=== PATIENT | male | born 1985 | race Caucasian/White ===

== ENCOUNTER 2016-05-05 02:19 | Emergency (ER) | payer OTHER ==
[~2016-05-05 02:19] MED LIST: B-COINJ PO; CIPR-250 PO; LYSI1000 PO; MELO15TA4 PO; NORC5TAB PO; TOPI1TAB31 PO; ZOLM2.5T PO; [UNRECOGNIZED DRUG - OTHER] PO
[2016-05-05] MEDS ORDERED: ISOVUE-370 76% 100ML VIAL (Q9967) As Ordered ONE (04:06)
[2016-05-05 04:25] LABS: BASO % 0.5 % (0.0-1.0); EOS # 0.1 K/mm3 (0.0-0.50); EOS % 1.1 % (0.0-3.0); LARGE UNSTAINED CELL # 0.1 K/mm3 (0.0-0.4); LARGE UNSTAINED CELL % 1.7 % (0.0-4.0); LYMPH # 1.6 K/mm3 (1.5-4.5); LYMPH % 27.6 % (24.0-44.0); MEAN CORPUSCULAR HEMOGLOBIN 30.8 pg (27.0-33.0); MEAN CORPUSCULAR HGB CONC 34.7 g/dl (32.0-36.5); MEAN CORPUSCULAR VOLUME 88.8 fl (80.0-96.0); MONO # 0.5 K/mm3 (0.0-0.8); MONO % 9.1 % (0.0-5.0); NEUTROPHILS # 3.4 K/mm3 (1.8-7.7); NEUTROPHILS % 60.1 % (36.0-66.0); PLATELET COUNT, AUTOMATED 265 k/mm3 (150-450); RED CELL DISTRIBUTION WIDTH 11.9 % (11.5-14.5); WHITE BLOOD COUNT 5.7 K/mm3 (4.0-10.0)
[2016-05-05] MEDS ORDERED: PERCOCET 5MG/325MG TAB As Ordered ONE (05:20)
[2016-05-05] MEDS ORDERED: ONDANSETRON 4MG/2ML VIAL (J2405) As Ordered ONE (05:20)
--- NOTE | 2016-05-05 05:20 | REPUSA ---
CLINICAL HISTORY: Neck pain. TECHNIQUE: Multiple axial images were obtained through the cervical spine. Images were also reconstru cted in coronal and sagittal planes. The study was performed without IV contrast. COMMENTS: There is no fracture or spondylolisthesis visualized. The paraspinal soft tissues are unremarkable. T here are no lytic or blastic lesions. Straightening of cervical lordosis is seen, suggesting muscular spasm. There is evidence of minimal m ultilevel disk disease, demonstrated by minimal osteophytosis and endplate sclerosis. No significant disk herniation is noted at any level. Canal and foramina remain patent. IMPRESSION: 1. No fracture or spondylolisthesis. 2. Straightening of cervical lordosis is seen, suggesting muscular spasm. 3. Minimal multilevel spondylosis. Thank you for your kind referral of this patient.
--- NOTE | 2016-05-05 06:01 | EDDOCDS ---
Nurse's Notes [facility] Name: Hector Bynum Age: 31 yrs Sex: Male : 1985 Arrival Date: 05/05/2016 Time: 02:19 Bed 17 Private MD: Diagnosis: Headache Presentation: 05/05 02:26 Presenting complaint: Patient states: noted spotting from surgical wound yesterday, cjh feeling light headed and nauseous all day, woke up this morning about 0140 and had some gross stuff, pinkish, discharge present on dressing and pillowcase. Adult Sepsis Screening: The patient does not have new or worsening altered mentation. Patient's respiratory rate is less than 22. Systolic blood pressure is greater than 100. Patient has a qSOFA score of 0- Negative Sepsis Screen. Suicide/Homicide risk assessment- the patient denies having any suicidal and/or homicidal ideations and does not present with any other emotional, behavioral or mental health complaints. 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 Transition of care: patient was not received from another setting of care. 02:26 Acuity: MARIA LUZ Level 3 [facility] 02:26 Method Of Arrival: Walkin/Carried/Asstd [facility] Triage Assessment: 02:33 General: Appears in no apparent distress, comfortable, Behavior is appropriate for age, [facility] cooperative. Pain: Location: head Pain currently is 4 out of 10 on a pain scale. HIV screening NA for this visit Offered previously. Neurological: Level of Consciousness is awake, alert, Oriented to person, place, time. Respiratory: Airway is patent Respiratory effort is even, unlabored, Respiratory pattern is regular, symmetrical. Derm: Skin is pink, warm & dry. small amount red drainage present on surgical wound dressing. Historical: - Allergies: no known allergies; - Home Meds: 1. Bactrim DS 800-160 mg Oral tab 2 tabs 2 times per day (Last dose: 05/04/2016 23:00) 2. meloxicam 15 mg oral tab 1 tab once daily 3. topiramate 100 mg oral tab 1 tab 2 times per day 4. zoltriptan 2.5 mg as needed 5. [place] 5-325 mg Oral tab 1 tab every 6 hours last taken on 19 of april, ran out - PMHx: Chiari Malformation; Migraine Headaches; occipital neuralgia; - PSHx: Chiari Malformation; Left Knee; Lasik Surgery; Hernia repair; - Social history: Smoking status: Patient states was never smoker of tobacco. No barriers to communication noted. - Family history: Not pertinent. - : The pt / caregiver states he / she is not on anticoagulants. Home medication list is obtained from the patient. - Exposure Risk Screening:: None identified. Screenin:04 Screening information is obtained from the patient. Fall risk: No risks identified. jp6 Assistance ADL's: requires no assistance with activities of daily living. Abuse/DV Screen: The patient / caregiver reports he/she is: not in a situation that causes fear, pain or injury. Nutritional screening: No deficits noted. Advance Directives: Currently, there is no health care proxy. There is no active DNR order. There is no living will. home support is adequate. Assessment: 03:04 General: Appears distressed, uncomfortable, Behavior is anxious, appropriate for age, jp6 cooperative. Pain: Denies pain. Neurological: No deficits noted. Level of Consciousness is awake, alert, Oriented to person, place, time. EENT: No deficits noted. Cardiovascular: No deficits noted. Respiratory: No deficits noted. GI: No deficits noted. : No deficits noted. Derm: Skin incision site dehisence at proximal end Skin is pink, moderate amt thick bloody drng noted. Musculoskeletal: No deficits noted. 05:34 Reassessment: Patient appears in no apparent distress at this time. Patient denies pain jp6 at this time. Pain: Location: scalp Pain currently is 5 out of 10 on a pain scale. Respiratory: No deficits noted. Derm: Skin is pink, warm & dry. Vital Signs: 02:24 BP 154 / 88; Pulse 75; Resp 18; Temp 98.8; Pulse Ox 98% ; Weight 104.33 kg; Height 5 ajs ft. 9 in. (175.26 cm); Pain 4/10; 05:19 BP 121 / 66; Pulse 61; Resp 16; Temp 98.9; Pulse Ox 99% ; Pain 6/10; [facility] 02:24 Body Mass Index 33.96 (104.33 kg, 175.26 cm) [facility] Vitals: 02:33 Log In Time: May 05, 2016 at 02:17. [facility] ED Course: 02:21 Patient visited by Jesenia Davis. gjb 02:21 Patient moved to Waiting gjb 02:24 Patient moved to Triage 1 cjh 02:26 Patient visited by Melissa Montilla. ajs 02:31 Triage Initiated cjh 02:36 Patient moved to 17 cjh 02:44 Cyndi Alvarez MD is Attending Physician. fg 02:44 Patient visited by Cyndi Alvarez MD. fg 02:49 Gaye Padilla,LISA is Primary Nurse. jp6 03:04 The patient / caregiver is instructed regarding the plan of care and ED course. jp6 03:46 Patient visited by Gaye Padilla,LISA. jp6 04:18 [facility] [place] [facility] Payment Agreement was scanned into [employer] and attached to record. hs2 04:35 Inserted saline lock: 20 gauge in right antecubital area and blood collected. jp6 04:47 Patient visited by Gaye Padilla,LISA. jp6 05:19 Wally Winslow is Referral Physician. fg 05:34 No procedures done that require assistance. jp6 06:00 Discontinued lock intact, bleeding controlled, pressure dressing applied, No jp6 redness/swelling at site. Administered Medications: 05:31 Drug: oxyCODONE-acetaminophen 1 tabs [oxycodone-acetaminophen 5 mg-325 mg tablet (1 [facility] tabs)] Route: PO; 05:31 Drug: Ondansetron 4 mg Route: IVP; Site: right antecubital; [facility] Order Results: Lab Order: CBC with Diff; SPEC'M 05/05/16 04:17 Test: WHITE BLOOD COUNT; Value: 5.7; Range: 4.0-10.0; Units: K/mm3; Status: F Test: RED BLOOD COUNT; Value: 4.65; Range: 4.30-6.10; Units: M/mm3; Status: F Test: HEMOGLOBIN; Value: 14.3; Range: 14.0-18.0; Units: g/dl; Status: F Test: HEMATOCRIT; Value: 41.4; Range: 42.0-52.0; Abnormal: Below low normal; Units: %; Status: F Test: MEAN CORPUSCULAR VOLUME; Value: 88.8; Range: 80.0-96.0; Units: fl; Status: F Test: MEAN CORPUSCULAR HEMOGLOBIN; Value: 30.8; Range: 27.0-33.0; Units: pg; Status: F Test: MEAN CORPUSCULAR HGB CONC; Value: 34.7; Range: 32.0-36.5; Units: g/dl; Status: F Test: RED CELL DISTRIBUTION WIDTH; Value: 11.9; Range: 11.5-14.5; Units: %; Status: F Test: PLATELET COUNT, AUTOMATED; Value: 265; Range: 150-450; Units: k/mm3; Status: F Test: NEUTROPHILS %; Value: 60.1; Range: 36.0-66.0; Units: %; Status: F Test: LYMPH %; Value: 27.6; Range: 24.0-44.0; Units: %; Status: F Test: MONO %; Value: 9.1; Range: 0.0-5.0; Abnormal: Above high normal; Units: %; Status: F Test: EOS %; Value: 1.1; Range: 0.0-3.0; Units: %; Status: F Test: BASO %; Value: 0.5; Range: 0.0-1.0; Units: %; Status: F Test: LARGE UNSTAINED CELL %; Value: 1.7; Range: 0.0-4.0; Units: %; Status: F Test: NEUTROPHILS #; Value: 3.4; Range: 1.8-7.7; Units: K/mm3; Status: F Test: LYMPH #; Value: 1.6; Range: 1.5-4.5; Units: K/mm3; Status: F Test: MONO #; Value: 0.5; Range: 0.0-0.8; Units: K/mm3; Status: F Test: EOS #; Value: 0.1; Range: 0.0-0.50; Units: K/mm3; Status: F Test: BASO #; Value: 0.0; Range: 0.0-0.2; Units: K/mm3; Status: F Test: LARGE UNSTAINED CELL #; Value: 0.1; Range: 0.0-0.4; Units: K/mm3; Status: F Outcome: 05:19 Discharge ordered by Provider. fg 05:34 Discharge Assessment: Patient awake, alert and oriented x 3. No cognitive and/or jp6 functional deficits noted. Patient verbalized understanding of disposition instructions. patient administered narcotics - yes. Pt provided with safe discharge. The following High Risk Discharge criteria are identified: None. Discharged to home ambulatory, with significant other. Condition: stable. CT Study completed. Property :Personal belongings accompany Pt. 06:00 Patient left the ED. jp6 Signatures: Melissa Montilla Jane,RN RN [facility] Cyndi Alvarez MD MD fg Beck, Gabriela gjb Stanton, Hillary, Reg Reg hs2 Gaye Padilla,RN RN jp6 Corrections: (The following items were deleted from the chart) 02:26 02:24 BP 154 / 88; Pulse 75bpm; Resp 18bpm; Pulse Ox 98%; Temp 98.8F; Height 5 ft. 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 [facility] MTDD
--- NOTE | 2016-05-05 06:01 | EDDOCDS ---
Physician Documentation [facility] Name: Hector Bynum Age: 31 yrs Sex: Male : 1985 Arrival Date: 05/05/2016 Time: 02:19 Bed 17 Private MD: Disposition: 05/05/16 05:19 Discharged to Home/Self Care. Impression: Headache. - Condition is Stable. - Medication Reconciliation, Local Pharmacy Hours form. - Follow up: Wally Winslow; When: Today; Reason: Recheck today's complaints. - Problem is new. - Symptoms have improved. Historical: - Allergies: no known allergies; - Home Meds: 1. Bactrim DS 800-160 mg Oral tab 2 tabs 2 times per day (Last dose: 05/04/2016 23:00) 2. meloxicam 15 mg oral tab 1 tab once daily 3. topiramate 100 mg oral tab 1 tab 2 times per day 4. zoltriptan 2.5 mg as needed 5. [place] 5-325 mg Oral tab 1 tab every 6 hours last taken on 19 of april, ran out - PMHx: Chiari Malformation; Migraine Headaches; occipital neuralgia; - PSHx: Chiari Malformation; Left Knee; Lasik Surgery; Hernia repair; - Social history: Smoking status: Patient states was never smoker of tobacco. No barriers to communication noted. - Family history: Not pertinent. - : The pt / caregiver states he / she is not on anticoagulants. Home medication list is obtained from the patient. - Exposure Risk Screening:: None identified. Vital Signs: 05/05 02:24 BP 154 / 88; Pulse 75; Resp 18; Temp 98.8; Pulse Ox 98% ; Weight 104.33 kg / 230.01 ajs lbs; Height 5 ft. 9 in. (175.26 cm); Pain 4/10; 05:19 BP 121 / 66; Pulse 61; Resp 16; Temp 98.9; Pulse Ox 99% ; Pain 6/10; cjh 02:24 Body Mass Index 33.96 (104.33 kg, 175.26 cm) ajs MDM: 03:56 IV Saline Lock ordered. fg 03:58 CBC with Diff Ordered. EDMS 04:17 Financial registration complete. hs2 04:18 [facility] [place] Payment Agreement was scanned into [employer] and attached to record. hs2 05:19 oxyCODONE-acetaminophen 5 mg-325 mg 1 tabs PO once ordered. fg 05:19 Ondansetron 4 mg IVP once ordered. fg Administered Medications: 05:31 Drug: oxyCODONE-acetaminophen 1 tabs [oxycodone-acetaminophen 5 mg-325 mg tablet (1 [facility] tabs)] Route: PO; 05:31 Drug: Ondansetron 4 mg Route: IVP; Site: right antecubital; [facility] Signatures: Dispatcher [employer] EDMS Erica MichaelRN RN [facility] Cyndi Alvarez MD MD Arlen Morrison, Reg Reg hs2 Gaye Padilla,RN RN jp6 The chart was reviewed and I authenticate all verbal orders and agree with the evaluation and treatment provided.Corrections: (The following items were deleted from the chart) 04:04 03:58 BASIC METABOLIC PROFILE+LAB ordered. EDMS EDMS 04:05 03:58 CT Spine,cervical w/o contrast+CT ordered. EDMS EDMS Attachments: 04:18 [facility] [place] Payment Agreement hs2 MTDD
--- NOTE | 2016-05-07 07:01 | EDDOCDS ---
Physician Documentation [facility] Name: Hector Bynum Age: 31 yrs Sex: Male : 1985 Arrival Date: 05/05/2016 Time: 02:19 Bed 17 Private MD: Disposition: 05/05/16 05:19 Discharged to Home/Self Care. Impression: Headache. - Condition is Stable. - Medication Reconciliation, Local Pharmacy Hours form. - Follow up: Wally Winslow; When: Today; Reason: Recheck today's complaints. - Problem is new. - Symptoms have improved. Historical: - Allergies: no known allergies; - Home Meds: 1. Bactrim DS 800-160 mg Oral tab 2 tabs 2 times per day (Last dose: 05/04/2016 23:00) 2. meloxicam 15 mg oral tab 1 tab once daily 3. topiramate 100 mg oral tab 1 tab 2 times per day 4. zoltriptan 2.5 mg as needed 5. [place] 5-325 mg Oral tab 1 tab every 6 hours last taken on 19 of april, ran out - PMHx: Chiari Malformation; Migraine Headaches; occipital neuralgia; - PSHx: Chiari Malformation; Left Knee; Lasik Surgery; Hernia repair; - Social history: Smoking status: Patient states was never smoker of tobacco. No barriers to communication noted. - Family history: Not pertinent. - : The pt / caregiver states he / she is not on anticoagulants. Home medication list is obtained from the patient. - Exposure Risk Screening:: None identified. Vital Signs: 05/05 02:24 BP 154 / 88; Pulse 75; Resp 18; Temp 98.8; Pulse Ox 98% ; Weight 104.33 kg / 230.01 ajs lbs; Height 5 ft. 9 in. (175.26 cm); Pain 4/10; 05:19 BP 121 / 66; Pulse 61; Resp 16; Temp 98.9; Pulse Ox 99% ; Pain 6/10; cjh 02:24 Body Mass Index 33.96 (104.33 kg, 175.26 cm) ajs MDM: 03:56 IV Saline Lock ordered. fg 03:58 CBC with Diff Ordered. EDMS 04:17 Financial registration complete. hs2 04:18 [facility] Payment Agreement was scanned into [employer] and attached to record. hs2 05:19 oxyCODONE-acetaminophen 5 mg-325 mg 1 tabs PO once ordered. fg 05:19 Ondansetron 4 mg IVP once ordered. fg 13:41 T-Sheet-- Draft Copy was scanned into [employer] and attached to record. gb 13:42 Radiology Report was scanned into [employer] and attached to record. gb Administered Medications: 05:31 Drug: oxyCODONE-acetaminophen 1 tabs [oxycodone-acetaminophen 5 mg-325 mg tablet (1 [facility] tabs)] Route: PO; 05:31 Drug: Ondansetron 4 mg Route: IVP; Site: right antecubital; [facility] Signatures: Dispatcher [employer] EDMS Toshia Love, Reg Reg gb Erica Michael RN RN [facility] Cyndi Alvarez MD MD Arlen Morrison, Reg Reg hs2 Gaye Padilla RN RN jp6 The chart was reviewed and I authenticate all verbal orders and agree with the evaluation and treatment provided.Corrections: (The following items were deleted from the chart) 04:04 03:58 BASIC METABOLIC PROFILE+LAB ordered. EDMS EDMS 04:05 03:58 CT Spine,cervical w/o contrast+CT ordered. EDMS EDMS Attachments: 04:18 [facility] Payment Agreement hs2 13:41 T-Sheet-- Draft Copy gb Chart Complete MTDD
--- NOTE | 2016-05-07 07:01 | EDDOCDS ---
Physician Documentation [facility] Name: Hector Bynum Age: 31 yrs Sex: Male : 1985 Arrival Date: 05/05/2016 Time: 02:19 Bed 17 Private MD: Disposition: 05/05/16 05:19 Discharged to Home/Self Care. Impression: Headache. - Condition is Stable. - Medication Reconciliation, Local Pharmacy Hours form. - Follow up: Wally Winslow; When: Today; Reason: Recheck today's complaints. - Problem is new. - Symptoms have improved. Historical: - Allergies: no known allergies; - Home Meds: 1. Bactrim DS 800-160 mg Oral tab 2 tabs 2 times per day (Last dose: 05/04/2016 23:00) 2. meloxicam 15 mg oral tab 1 tab once daily 3. topiramate 100 mg oral tab 1 tab 2 times per day 4. zoltriptan 2.5 mg as needed 5. [place] 5-325 mg Oral tab 1 tab every 6 hours last taken on 19 of april, ran out - PMHx: Chiari Malformation; Migraine Headaches; occipital neuralgia; - PSHx: Chiari Malformation; Left Knee; Lasik Surgery; Hernia repair; - Social history: Smoking status: Patient states was never smoker of tobacco. No barriers to communication noted. - Family history: Not pertinent. - : The pt / caregiver states he / she is not on anticoagulants. Home medication list is obtained from the patient. - Exposure Risk Screening:: None identified. Vital Signs: 05/05 02:24 BP 154 / 88; Pulse 75; Resp 18; Temp 98.8; Pulse Ox 98% ; Weight 104.33 kg / 230.01 ajs lbs; Height 5 ft. 9 in. (175.26 cm); Pain 4/10; 05:19 BP 121 / 66; Pulse 61; Resp 16; Temp 98.9; Pulse Ox 99% ; Pain 6/10; cjh 02:24 Body Mass Index 33.96 (104.33 kg, 175.26 cm) ajs MDM: 03:56 IV Saline Lock ordered. fg 03:58 CBC with Diff Ordered. EDMS 04:17 Financial registration complete. hs2 04:18 [facility] [place] Payment Agreement was scanned into [employer] and attached to record. hs2 05:19 oxyCODONE-acetaminophen 5 mg-325 mg 1 tabs PO once ordered. fg 05:19 Ondansetron 4 mg IVP once ordered. fg 13:41 T-Sheet-- Draft Copy was scanned into [employer] and attached to record. gb 13:42 Radiology Report was scanned into [employer] and attached to record. gb Administered Medications: 05:31 Drug: oxyCODONE-acetaminophen 1 tabs [oxycodone-acetaminophen 5 mg-325 mg tablet (1 [facility] tabs)] Route: PO; 05:31 Drug: Ondansetron 4 mg Route: IVP; Site: right antecubital; [facility] Signatures: Dispatcher [employer] EDMS Toshia Love, Reg Reg gb Erica Michael RN RN [facility] Cyndi Alvarez MD MD Arlen Morrison, Reg Reg hs2 Gaye Padilla RN RN jp6 The chart was reviewed and I authenticate all verbal orders and agree with the evaluation and treatment provided.Corrections: (The following items were deleted from the chart) 04:04 03:58 BASIC METABOLIC PROFILE+LAB ordered. EDMS EDMS 04:05 03:58 CT Spine,cervical w/o contrast+CT ordered. EDMS EDMS Attachments: 04:18 [facility] [place] Payment Agreement hs2 13:41 T-Sheet-- Draft Copy gb Chart Complete MTDD
--- NOTE | 2016-05-07 07:01 | EDDOCDS ---
Nurse's Notes [facility] Name: Hector Bynum Age: 31 yrs Sex: Male : 1985 Arrival Date: 05/05/2016 Time: 02:19 Bed 17 Private MD: Diagnosis: Headache Presentation: 05/05 02:26 Presenting complaint: Patient states: noted spotting from surgical wound yesterday, cjh feeling light headed and nauseous all day, woke up this morning about 0140 and had some gross stuff, pinkish, discharge present on dressing and pillowcase. Adult Sepsis Screening: The patient does not have new or worsening altered mentation. Patient's respiratory rate is less than 22. Systolic blood pressure is greater than 100. Patient has a qSOFA score of 0- Negative Sepsis Screen. Suicide/Homicide risk assessment- the patient denies having any suicidal and/or homicidal ideations and does not present with any other emotional, behavioral or mental health complaints. Status: The patient is an active duty service administrator. Transition of care: patient was not received from another setting of care. 02:26 Acuity: MARIA LUZ Level 3 [facility] 02:26 Method Of Arrival: Walkin/Carried/Asstd [facility] Triage Assessment: 02:33 General: Appears in no apparent distress, comfortable, Behavior is appropriate for age, [facility] cooperative. Pain: Location: head Pain currently is 4 out of 10 on a pain scale. HIV screening NA for this visit Offered previously. Neurological: Level of Consciousness is awake, alert, Oriented to person, place, time. Respiratory: Airway is patent Respiratory effort is even, unlabored, Respiratory pattern is regular, symmetrical. Derm: Skin is pink, warm & dry. small amount red drainage present on surgical wound dressing. Historical: - Allergies: no known allergies; - Home Meds: 1. Bactrim DS 800-160 mg Oral tab 2 tabs 2 times per day (Last dose: 05/04/2016 23:00) 2. meloxicam 15 mg oral tab 1 tab once daily 3. topiramate 100 mg oral tab 1 tab 2 times per day 4. zoltriptan 2.5 mg as needed 5. Sheldon 5-325 mg Oral tab 1 tab every 6 hours last taken on 19 of april, ran out - PMHx: Chiari Malformation; Migraine Headaches; occipital neuralgia; - PSHx: Chiari Malformation; Left Knee; Lasik Surgery; Hernia repair; - Social history: Smoking status: Patient states was never smoker of tobacco. No barriers to communication noted. - Family history: Not pertinent. - : The pt / caregiver states he / she is not on anticoagulants. Home medication list is obtained from the patient. - Exposure Risk Screening:: None identified. Screenin:04 Screening information is obtained from the patient. Fall risk: No risks identified. jp6 Assistance ADL's: requires no assistance with activities of daily living. Abuse/DV Screen: The patient / caregiver reports he/she is: not in a situation that causes fear, pain or injury. Nutritional screening: No deficits noted. Advance Directives: Currently, there is no health care proxy. There is no active DNR order. There is no living will. home support is adequate. Assessment: 03:04 General: Appears distressed, uncomfortable, Behavior is anxious, appropriate for age, jp6 cooperative. Pain: Denies pain. Neurological: No deficits noted. Level of Consciousness is awake, alert, Oriented to person, place, time. EENT: No deficits noted. Cardiovascular: No deficits noted. Respiratory: No deficits noted. GI: No deficits noted. : No deficits noted. Derm: Skin incision site dehisence at proximal end Skin is pink, moderate amt thick bloody drng noted. Musculoskeletal: No deficits noted. 05:34 Reassessment: Patient appears in no apparent distress at this time. Patient denies pain jp6 at this time. Pain: Location: scalp Pain currently is 5 out of 10 on a pain scale. Respiratory: No deficits noted. Derm: Skin is pink, warm & dry. Vital Signs: 02:24 BP 154 / 88; Pulse 75; Resp 18; Temp 98.8; Pulse Ox 98% ; Weight 104.33 kg; Height 5 ajs ft. 9 in. (175.26 cm); Pain 4/10; 05:19 BP 121 / 66; Pulse 61; Resp 16; Temp 98.9; Pulse Ox 99% ; Pain 6/10; [facility] 02:24 Body Mass Index 33.96 (104.33 kg, 175.26 cm) [facility] Vitals: 02:33 Log In Time: May 05, 2016 at 02:17. [facility] ED Course: 02:21 Patient visited by Jesenia Davis. gjb 02:21 Patient moved to Waiting gjb 02:24 Patient moved to Triage 1 cjh 02:26 Patient visited by Melissa Montilla. ajs 02:31 Triage Initiated cjh 02:36 Patient moved to 17 cj 02:44 Cyndi Alvarez MD is Attending Physician. fg 02:44 Patient visited by Cyndi Alvarez MD. fg 02:49 Gaye Padilla,RN is Primary Nurse. jp6 03:04 The patient / caregiver is instructed regarding the plan of care and ED course. jp6 03:46 Patient visited by Gaye Padilla,LISA. jp6 04:18 [facility] [place] was scanned into [employer] and attached to record. hs2 04:35 Inserted saline lock: 20 gauge in right antecubital area and blood collected. jp6 04:47 Patient visited by Gaye Padilla,LISA. jp6 05:19 Wally Winslow is Referral Physician. fg 05:34 No procedures done that require assistance. jp6 06:00 Discontinued lock intact, bleeding controlled, pressure dressing applied, No jp6 redness/swelling at site. 13:41 T-Sheet-- Draft Copy was scanned into [employer] and attached to record. gb 13:42 Radiology Report was scanned into [employer] and attached to record. gb Administered Medications: 05:31 Drug: oxyCODONE-acetaminophen 1 tabs [oxycodone-acetaminophen 5 mg-325 mg tablet (1 cjh tabs)] Route: PO; 05:31 Drug: Ondansetron 4 mg Route: IVP; Site: right antecubital; [facility] Order Results: Lab Order: CBC with Diff; SPEC'M 05/05/16 04:17 Test: WHITE BLOOD COUNT; Value: 5.7; Range: 4.0-10.0; Units: K/mm3; Status: F Test: RED BLOOD COUNT; Value: 4.65; Range: 4.30-6.10; Units: M/mm3; Status: F Test: HEMOGLOBIN; Value: 14.3; Range: 14.0-18.0; Units: g/dl; Status: F Test: HEMATOCRIT; Value: 41.4; Range: 42.0-52.0; Abnormal: Below low normal; Units: %; Status: F Test: MEAN CORPUSCULAR VOLUME; Value: 88.8; Range: 80.0-96.0; Units: fl; Status: F Test: MEAN CORPUSCULAR HEMOGLOBIN; Value: 30.8; Range: 27.0-33.0; Units: pg; Status: F Test: MEAN CORPUSCULAR HGB CONC; Value: 34.7; Range: 32.0-36.5; Units: g/dl; Status: F Test: RED CELL DISTRIBUTION WIDTH; Value: 11.9; Range: 11.5-14.5; Units: %; Status: F Test: PLATELET COUNT, AUTOMATED; Value: 265; Range: 150-450; Units: k/mm3; Status: F Test: NEUTROPHILS %; Value: 60.1; Range: 36.0-66.0; Units: %; Status: F Test: LYMPH %; Value: 27.6; Range: 24.0-44.0; Units: %; Status: F Test: MONO %; Value: 9.1; Range: 0.0-5.0; Abnormal: Above high normal; Units: %; Status: F Test: EOS %; Value: 1.1; Range: 0.0-3.0; Units: %; Status: F Test: BASO %; Value: 0.5; Range: 0.0-1.0; Units: %; Status: F Test: LARGE UNSTAINED CELL %; Value: 1.7; Range: 0.0-4.0; Units: %; Status: F Test: NEUTROPHILS #; Value: 3.4; Range: 1.8-7.7; Units: K/mm3; Status: F Test: LYMPH #; Value: 1.6; Range: 1.5-4.5; Units: K/mm3; Status: F Test: MONO #; Value: 0.5; Range: 0.0-0.8; Units: K/mm3; Status: F Test: EOS #; Value: 0.1; Range: 0.0-0.50; Units: K/mm3; Status: F Test: BASO #; Value: 0.0; Range: 0.0-0.2; Units: K/mm3; Status: F Test: LARGE UNSTAINED CELL #; Value: 0.1; Range: 0.0-0.4; Units: K/mm3; Status: F Outcome: 05:19 Discharge ordered by Provider. fg 05:34 Discharge Assessment: Patient awake, alert and oriented x 3. No cognitive and/or jp6 functional deficits noted. Patient verbalized understanding of disposition instructions. patient administered narcotics - yes. Pt provided with safe discharge. The following High Risk Discharge criteria are identified: None. Discharged to home ambulatory, with significant other. Condition: stable. CT Study completed. Property :Personal belongings accompany Pt. 06:00 Patient left the ED. jp6 Signatures: Toshia Love, Reg Reg gb Eladia, Erica Gutierres,RN RN [facility] Cyndi Alvarez MD MD fg Beck, Gabriela gjb Stanton, Hillary, Reg Reg hs2 Gaye Padilla,RN RN jp6 Corrections: (The following items were deleted from the chart) 02:26 02:24 BP 154 / 88; Pulse 75bpm; Resp 18bpm; Pulse Ox 98%; Temp 98.8F; Height 5 ft. 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 [facility] Chart Complete MTDD
== END 2016-05-05 06:00 | disposition home or self-care (01) ==
LOC: M ED 02:19
DX: T81.30XA Disruption of wound, unspecified, initial encounter (principal); R51 Headache; M54.81 Occipital neuralgia; G93.5 Compression of brain; Z79.899 Other long term (current) drug therapy; Z79.2 Long term (current) use of antibiotics
CPT/HCPCS: 36415; 72126; 85025; 96374; 99284; J2405; Q9967